=== PATIENT | female | born 1980 | race Two or more races ===

== ENCOUNTER 2021-11-05 21:56 | Emergency (ER) | payer MEDICAID ==
[~2021-11-05] VITALS: Ht 160 cm; Wt 74.8 kg
[~2021-11-05 21:56] MED LIST: ACET-2619
[2021-11-05 22:23] VITALS: BP 138/90
--- NOTE | 2021-11-05 22:52 | NUR ---
Patient ambulated to bed 6.
--- NOTE | 2021-11-05 22:55 | NUR ---
LAB AT BEDSIDE
--- NOTE | 2021-11-05 23:06 | NUR ---
PATIETN AMBULATED TO RR
[2021-11-05 23:07] LABS: BASOPHILS # (AUTO) 0.1 K/uL (0.00-0.22); BASOPHILS % (AUTO) 0.7 % (0.0-2.0); EOSINOPHILS % (AUTO) 0.5 % (0.0-4.0); HEMATOCRIT 33.6 % (36-48); HEMOGLOBIN 11.3 g/dL (12.0-16.0); LYMPHOCYTES # (AUTO) 1.8 K/uL (2.5-16.5); LYMPHOCYTES % (AUTO) 19.2 % (20.5-51.1); MEAN CORPUSCULAR HEMOGLOBIN 30 pg (27-31); MEAN CORPUSCULAR HGB CONC 34 g/dL (33-37); MEAN CORPUSCULAR VOLUME 90.8 fL (80-94); MONOCYTES # (AUTO) 0.8 K/uL (0.8-1.0); MONOCYTES % (AUTO) 9.3 % (1.7-9.3); NEUTROPHILS # (AUTO) 6.4 K/uL (1.8-7.7); NEUTROPHILS % (AUTO) 70.3 % (42.2-75.2); PLATELET COUNT (AUTO) 417 K/uL (140-450); RED CELL DISTRIBUTION WIDTH 17.4 % (11.6-13.7); WHITE BLOOD COUNT (AUTO) 9.1 K/uL (4.8-10.8)
--- NOTE | 2021-11-05 23:30 | NUR ---
41/F BIB SELF C/C EPIGASTRIC PAIN X4DAYS. PER PATIENT PAIN IS SHARP 10/10. PATIENT REPORTS N/V/LACK OF APPETITE, DENIES N/V/SOB/CP. PER PATIETN SHE HAS BEEN TAKING [place] WITH SOME RELIEF. PATIENT REPORTS LAST TAKING IT IN THE AM 11/05. PATIENT APPEARS TO BE GUARDING RUQ. RR APPEAR TO BE EVEN AND UNLABORED. PATIENT PLACED IN BED IN A GOWN. BED LOW AND LOCKED. YARA SIDE RAILS FOR SAFETY. ALL NEEDS MET. PMHX ARTHRITIS NKA
[2021-11-05 23:37] LABS: APPEARANCE,URINE CLEAR (CLEAR); BILIRUBIN,URINE 1+ (NEGATIVE); BLOOD, URINE NEGATIVE (NEGATIVE); COLOR,URINE YELLOW (YELLOW); LEUKOCYTE ESTERASE ,URINE TRACE (NEGATIVE); NITRITE, URINE NEGATIVE (NEGATIVE); UGLUCOSE NEGATIVE (NEGATIVE)
--- NOTE | 2021-11-05 23:46 | NUR ---
Dr. Roberts examining patient.
[2021-11-05] MEDS ORDERED: DICYCLOMINE HCL LIQUID 20 MG, ALUMINUM HYD/MAG/SIMETHICONE 30 ML, LIDOCAINE VISCOUS 2% ... PO ONE ×3 (23:50)
[2021-11-05] MEDS ORDERED: PANTOPRAZOLE 40 MG TABEC PO ONE (23:50)
[2021-11-05] MEDS ORDERED: MORPHINE SULFATE 4 MG/ML SYR IM ONE (23:50)
[2021-11-05] MEDS ORDERED: ONDANSETRON 4 MG ODT PO ONE (23:55)
[2021-11-05] MEDS ORDERED: ALUMINUM HYD/MAG/SIMETHICONE 30 ML UDC ONE (23:59)
[2021-11-05] MEDS ORDERED: DICYCLOMINE HCL LIQUID 10 MG/5 ML UDC ONE (23:59)
[2021-11-06 00:02] LABS: ALBUMIN 3.2 g/dL (3.4-5.0); ANION GAP 12.2 (8-16); CARBON DIOXIDE 30.4 mmol/L (21-32); POTASSIUM 3.6 mmol/L (3.5-5.1); TOTAL BILIRUBIN 0.2 mg/dL (0.0-1.0)
--- NOTE | 2021-11-06 00:33 | NUR ---
US AT BEDSIDE
--- NOTE | 2021-11-06 01:50 | NUR ---
PER PATIENT PAIN 0/10. MD AWARE .
[2021-11-06] MEDS ORDERED: OMEP40EC23 PO (02:54)
[2021-11-06] MEDS ORDERED: ONDA-188 SL (02:54)
[2021-11-06] MEDS ORDERED: SUCR1TAB35 PO (02:54)
[2021-11-06 03:10] VITALS: BP 128/82
--- NOTE | 2021-11-06 03:10 | NUR ---
Patient discharged with v/s stable. Written and verbal after care instructions given GASTRITIS and explained. Patient alert, oriented and verbalized understanding of instructions. Ambulatory with steady gait. All questions addressed prior to discharge. ID band removed. Patient advised to follow up with PMD. Rx of OMEPRAZOLE, ANDANSETRON, AND SUCRALFATE given.
--- NOTE | 2021-11-06 03:11 | NUR ---
The patient's care was reviewed and supervised by Negrita Maloney RN.
== END 2021-11-06 03:10 | disposition home or self-care (01) ==
LOC: MED 21:56
DX: K29.70 Gastritis, unspecified, without bleeding (principal); D64.9 Anemia, unspecified; K83.8 Other specified diseases of biliary tract; M19.90 Unspecified osteoarthritis, unspecified site; Z79.899 Other long term (current) drug therapy
CPT/HCPCS: 36415; 71045; 76700; 80053; 81003; 81025; 83690; 85025; 96372; 99285; J2270; Q0092; Q0162